=== PATIENT | female | born 1950 | race Caucasian/White ===

== ENCOUNTER 2016-12-01 00:40 | Inpatient (IN) ==
--- NOTE | 2016-12-01 01:03 | Emergency Department Note ---
Arrival - Arrival Chief Complaint: Upper Respiratory Stated Complaint: URI ED Nursing Triage Note: C/C transfer from [facility] for DX URI, Rhabdomylosis. Pt was given 1g Rocephin, 3L NS, 2 Duonebs. Mode of Arrival: Stretcher Limitations: No Limitations Source: Patient Time Seen by Provider: 12/01/16 00:58 - History of Present Illness HPI Narrative: This 66-year-old white female presents on transfer from [facility] where she was evaluated earlier this evening for 3 day history of respiratory complaints that had not improved on outpatient antibiotics. However , in the process of workup the patient was found to have significant rhabdomyolysis and renal insufficiency. The patient denies any significant history of kidney dysfunction in the past. Likewise the patient had a greatly elevated white blood count of 31,000. Currently she still complains of a cough associated with intermittent wheezing. She presents currently after receiving 3 L of fluid Rocephin, and 2 DuoNeb's Onset (ago): day(s) (Patient presents several days post onset of symptoms) Allergies/Adverse Reactions: Allergies Allergy/AdvReac Type Severity Reaction Status Date / Time Sulfa (Sulfonamide Allergy Severe SHORTNESS Verified 12/01/16 00:53 Antibiotics) OF BREATH cefdinir [From Omnicef] Allergy Mild ITCHING Verified 12/01/16 00:53 Home Medications: Home Medications Medication Instructions Recorded Confirmed Type Carbidopa/Levodopa 25-100 [Sinemet 1 tablet PO DAILY 05/10/15 05/10/15 History 25-100] Estrogens(Conj) Tab [Premarin Tab] 0.625 mg PO DAILY 05/10/15 05/10/15 History HYDROcodone/ACETAMIN 7.5-325 1 tablet PO Q6H 05/10/15 05/10/15 History [[place] 7.5-325] PROzac 40 mg PO DAILY 05/10/15 05/10/15 History Zestoretic 20-12.5 mg Tablet 20 mg PO DAILY 05/10/15 05/10/15 History Review of System - Review of System 12 point system: reviewed and no additional remarkable complaints except as stated - Review of System Constitutional: Present: as per HPI Respiratory: Present: as per HPI Genitourinary female: Present: as per HPI Medical,Surgical,& Family Hx - Medical History Cardio: History of: CAD, Hypertension Neurology: History of: Migraine No history of: Seizures Respiratory: History of: Obstructive Sleep Apnea Gastrointestinal: History of: GERD, GI Problems (dysphagia) - Surgical History Abdominal Surgeries: Surgical HX of: Cholecystectomy, EGD - Social History Smoking Status: Former smoker Frequency of Alcohol Use: None Type of Drug Use: None Exam Physical Examination: GENERAL: Obese white female in no acute distress. HEENT: Normocephalic. No trauma. Moist mucous membranes. EOMI. PERRLA. ENT NML NECK: Supple. No adenopathy. CARDIAC: Regular. No murmurs. Heart rate 88 CHEST: Scattered expiratory wheezes anteriorly. No respiratory distress. O2 sat 92% ABDOMEN: Soft. Nontender. Active bowel sounds. EXTREMITIES: No trauma. Normal ROM. No pedal edema. SKIN: No diaphoresis. No rash. NEURO: Alert. Oriented 3. Motor, sensory, vibratory intact. No focal deficits. Vital Signs: Vital Signs Temperature 98.5 F 12/01/16 00:40 Pulse Rate 86 12/01/16 00:40 Respiratory Rate 22 12/01/16 00:40 Blood Pressure 86/54 12/01/16 00:40 O2 Sat by Pulse Oximetry 92 L 12/01/16 00:40 Course - Reevaluation(s) Reevaluation #1: Discussed with patient the need for hospitalization. - Consultations Consultation #1: Discussed with hospitalist service who will admit for further evaluation treatment peer Results - Labs Labs: Laboratory per [place] urinalysis reveals 1+ leukocytes and 1+ protein, glucose 131, creatinine 4.1, BUN 37, myoglobin 3821, white blood count 31,000 hematocrit 33 - Impressions EKG per [place] revealed no acute injury pattern. - Diagnostic Findings Procedure: CT: image reviewed by me, report reviewed by me (Head per [place] negative) Disposition Clinical Impression: Rhabdomyolysis, Acute renal failure, Asthma, Persistent upper respiratory infection Case discussed with: patient, patient's family Disposition: Still a Patient Condition: Guarded Time of Disposition: 01:09
[2016-12-01] MEDS ORDERED: methylPREDNISolone SOD SUC 125 MG/2 ML VIAL IV STA (01:05)
[2016-12-01] MEDS ORDERED: ALBUTEROL/IPRATROPIUM 3 ML NEB RESP TX STA (01:05)
[2016-12-01] MEDS ORDERED: SODIUM CHLORIDE 0.9% 1,000 ML IV STA (01:19)
[2016-12-01 01:28] LABS: Basophils # 0.1 10*3/uL (0.0-0.2); Basophils % 0.3 % (0.0-0.8); Hematocrit 31.3 VOL% (35.7-47.0); Hemoglobin 9.8 GM/DL (12.0-16.0); Immature Granulocytes Absolute 0.28 #; Lymphocytes % 3.6 % (21.3-54.2); Mean Corpuscular HGB Conc 31.3 GM/DL (32-36); Mean Corpuscular Hemoglobin 29 PG (27-34); Mean Corpuscular Volume 92.1 FL (87-102); Mean Platelet Volume 10.5 FL (9.6-12.0); Monocytes # 0.4 10*3/uL (0.11-0.8); Monocytes % 1.4 % (1.7-12.7); Neutrophils # 25.3 10*3/uL (1.4-7.4); Neutrophils % 93.7 % (38.7-73.9); Platelet Count 333 T/CUMM (130-400)
[2016-12-01 01:52] LABS: Lymphocytes 2 % (20-55); Segmented Neutrophils 95 % (50-85)
[2016-12-01 01:53] LABS: Ovalocytes 1+; Platelet Estimate Increased
[2016-12-01 01:54] LABS: Total Cells Counted 100
[2016-12-01 02:28] LABS: Alanine Aminotransferase 27 U/L (13-56); Albumin 3.3 G/DL (3.4-5.0); Alkaline Phosphatase 106 U/L (45-117); Aspartate Amino Transferase 49 U/L (0-37); Bilirubin,Total < 0.39 MG/DL (0.2-1.0); Blood Urea Nitrogen 60 MG/DL (7-18); CKMB % 2.5 %; Glucose 145 MG/DL (74-106); Osmolality,Calculated 298.4 MOS/KG (273-304); Potassium 4.8 MMOL/L (3.5-5.1); Sodium 140 MMOL/L (136-145); Total Protein 6.6 G/DL (6.4-8.3); Troponin I Only < 0.015 NG/ML (0.00-0.045)
[2016-12-01] MEDS ORDERED: ACETAMINOPHEN 325 MG TABLET PO PRN (03:23)
[2016-12-01] MEDS ORDERED: SODIUM CHLORIDE 0.9% 1,000 ML IV SCH (03:30)
--- NOTE | 2016-12-01 03:43 | Hospitalist History & Physical ---
Assessment and Plan (1) Altered mental status Status: Acute Assessment and plan: Patient is drowsy but arousable. Likely due to her acute illness plus medications she is on noted she has been on gabapentin Flexeril and zolpidem at home. In addition she is also appeared dehydrated with acute kidney injury. I will order ABG to make sure she does not have CO2 retention causing drowsiness Current Visit: Yes (2) Pneumonia Status: Acute Assessment and plan: Patient has a upper respiratory tract infection and possible pneumonia will follow do the blood culture and start antibiotics follow the response. Due to her wheezing I will give bronchodilator. I will also ordered pro-calcitonin level Current Visit: Yes (3) Acute kidney injury Status: Acute Assessment and plan: Probably due to acute illness and dehydration with the combination of DARIEL inhibitor and diuretic contributing. Will continue hydration get urine electrolytes and creatinine. Monitor renal function. Renal consult in the morning Current Visit: Yes (4) Anemia Status: Acute Assessment and plan: We will repeat hemoglobin hematocrit check stool Hemoccult and anemia studies with iron ferritin iron binding capacity folic acid B12 LDH and reticulocyte count. Workup to be followed by the hospitalist in the morning Current Visit: Yes (5) Leukocytosis Status: Acute Assessment and plan: Likely due to acute infection plus dehydration. Current Visit: Yes History of Present Illness Chief complaint: Altered mental status and wheezing History of present illness: Ms. Chaves is a 66 year old female with history of for hypertension and low back pain transfer from [facility]. Patient has been sick for the last 2 days prior to coming to the hospital. According to the family patient started having wheezing on Saturday she has no history of asthma or COPD she was a smoker but quit 16 years ago when she suffered from bleeding peptic ulcer. She was given outpatient treatment but was not able to improve. Also she has been drowsy since Saturday. She is able to sleep easily. She has been coughing without any production of sputum she has no fever. She has nausea but no vomiting diarrhea she is reported to be voiding okay without any urinary symptoms she does have some sore throat and sneezing according to but no runny nose. The patient was sleepy but was able to arouse her and she complained of low back pain but has chronic low back pain history. She did endorse having sore throat and wheezing. She is not exposed to active or passive smoking recently. At the [facility] she had underwent investigation of was noted to have white count of 31,000 BUN of 51 creatinine 4.1 she was hypotensive with a blood pressure as low as 86/540. She has received IV fluid. She had a CT scan of the head which was negative for any acute intracranial abnormalities. Urinalysis reported to have a specific gravity of greater than 1.0301+ leukocyte without any nitrites. He had she had a repeat lab work done and noted to have WBC count of 7 27,000 hemoglobin 9.8 hematocrit 31.3. Her BUN level of 60 and creatinine 3.7. She had a CPK of 1095 her troponin level was less than 0.015. At [facility] she had a CPK level of 3821. She has received 1 g of Rocephin at [facility] with the 3 L of normal saline. Labs. She received 1 L of fluid here in our ER. Home Medications Medication Instructions Recorded Confirmed Type Carbidopa/Levodopa 25-100 [Sinemet 1 tablet PO DAILY 05/10/15 05/10/15 History 25-100] Estrogens(Conj) Tab [Premarin Tab] 0.625 mg PO DAILY 05/10/15 05/10/15 History HYDROcodone/ACETAMIN 7.5-325 1 tablet PO Q6H 05/10/15 05/10/15 History [[place] 7.5-325] PROzac 40 mg PO DAILY 05/10/15 05/10/15 History Zestoretic 20-12.5 mg Tablet 20 mg PO DAILY 05/10/15 05/10/15 History Allergies Allergy/AdvReac Type Severity Reaction Status Date / Time Sulfa (Sulfonamide Allergy Severe SHORTNESS Verified 12/01/16 00:53 Antibiotics) OF BREATH cefdinir [From Omnicef] Allergy Mild ITCHING Verified 12/01/16 00:53 Medical,Surgical,& Family Hx - Medical History Cardio: History of: CAD, Hypertension Neurology: History of: Migraine No history of: Seizures Respiratory: History of: Obstructive Sleep Apnea (Patient has never been tested for sleep apnea but has been. ) Gastrointestinal: History of: GERD, GI Problems (dysphagia) - Surgical History Surgical History: noncontributory Abdominal Surgeries: Surgical HX of: Cholecystectomy, EGD Reproductive Surgeries: Surgical HX of;: Hysterectomy - Social History Smoking Status: Former smoker Frequency of Alcohol Use: None Type of Drug Use: None Review of systems: Comprehensive review of system was done and negative unless indicated above in HPI Exam - Constitutional Vitals: Period Temp Pulse Resp BP Sys/Tabares Pulse Ox Last 24 Hr 98.5 F-98.5 F 83-87 20-22 86-86/54-54 92-97 General appearance: morbidly obese, other (Sleepy but arousable) - Head Head exam: Present: normal inspection, normocephalic, atraumatic - Eye Eye exam: Present: EOMI, conjunctival injection. Absent: nystagmus Pupils: Present: JACK, normal accommodation - ENT ENT exam: Present: normal exam, normal oropharynx - Neck Neck exam: Present: other (Supple) - Respiratory Respiratory exam: Present: rhonchi, wheezes. Absent: accessory muscle use ( Bilateral equal air entry with diffuse rhonchi), rales - Cardiovascular Cardiovascular exam: Present: regular rate and rhythm. Absent: tachycardia - GI/Abdominal GI/Abdominal exam: Present: normal bowel sounds, soft. Absent: distended, tenderness - Extremities Exam Extremities exam: Present: normal inspection. Absent: edema - Neurological Exam Neurological exam: Present: alert, oriented X3 - Skin Skin exam: Present: normal color Results - Labs CBC & BMP: 12/01/16 00:57 12/01/16 00:57 Lab Results: I have reviewed the past 24 hour labs
[2016-12-01 03:54] LABS: ABG Base Excess -10.4 MMOL/L (-2.5-2.5); ABG Oxygen Saturation 93.1 % (95-100); ABG PCO2 52.6 MM HG (35-48); ABG PO2 82.2 MM HG (80-95); ABG TCO2 17.5 MMOL/L (23-27); Allen Test Positive
[2016-12-01 03:56] LABS: ABG PH 7.153 (7.35-7.45)
[2016-12-01] MEDS ORDERED: LEVOFLOXACIN INJ 750 MG in PREMIX 1 EACH IV ONE (04:00)
[2016-12-01 04:49] LABS: % Iron Saturation 5.1 % (18-50)
[2016-12-01 04:53] LABS: Ferritin 43.9 ng/ml (8-252)
[2016-12-01] MEDS: SODIUM BICARB INJ 150 MEQ in STERILE WATER INJ 850 ML IV SCH ×4 (04:57→19:12)
[2016-12-01] MEDS ORDERED: SODIUM ACETATE IV SCH (05:00)
[2016-12-01] MEDS ORDERED: STERILE WATER IV SCH (05:00)
[2016-12-01 05:23] LABS: Folate 6.7 NG/ML (5.4-24.0)
[2016-12-01] MEDS ORDERED: VANCOMYCIN INJ 1,500 MG in SODIUM CHLORIDE 0.9% 500 ML IV ONE (06:00)
[2016-12-01] MEDS: ALBUTEROL 1.25 MG/3 ML NEB RESP TX SCH ×5 (07:26→23:49)
[2016-12-01 07:42] LABS: ABG Base Excess -7.3 MMOL/L (-2.5-2.5); ABG HCO3 18.4 MMOL/L (20-26); ABG Oxygen Saturation 96.2 % (95-100); ABG PCO2 52.3 MM HG (35-48); ABG PO2 96.9 MM HG (80-95); ABG TCO2 19.4 MMOL/L (23-27); Allen Test Positive
[2016-12-01 07:48] LABS: ABG PH 7.209 (7.35-7.45)
[2016-12-01] MEDS ORDERED: AMINOPHYLLINE 250 MG in SODIUM CHLORIDE 0.9% 100 ML IV ONE (08:00)
[2016-12-01] MEDS ORDERED: ALBUTEROL/IPRATROPIUM 3 ML NEB RESP TX PRN (08:00)
--- NOTE | 2016-12-01 08:15 | Pulmonology Consult Note ---
History of Present Illness Chief complaint: S OB. Wheezing. Mild hypercarbia. Severe metabolic acidosis History of present illness: Ms. Chaves is a 66 year old white female whom I been asked to see in pulmonary consultation for evaluation and treatment. This patient was brought in because she was confused. She was found to have mild hypercarbia, generalized wheezing, severe metabolic acidosis. Renal failure. There is a history of high blood pressure. Patient was anemic and she had a high white count. She complains of a cough with no sputum production. She is hearing herself wheeze. She told someone she had a sore throat.. The patient is confused and remainder of her review of systems is unreliable. Allergies. Sulfa. Omnicef. Home medicines. See below. Past history. High blood pressure. Migraine headache. Hysterectomy. Cholecystectomy. Dysphasia. Possible history of obstructive sleep apnea. Social history. Former smoker. Family history. Positive high blood pressure Chest x-ray. Heart size is normal. Pulmonary arteries are normal. Mediastinum is normal. There are faint increased interstitial markings at both bases. No definite infiltrates. Only a portable semierect film is available. No heart ABGs 12/01/2016 at 3:40 AM. PH 7.153, PCO2 52.6. PO2 82.2. Bicarb 16. FiO2 36 % ABGs. . 7:25 AM. FiO2 36%. PH 7.209, PCO2 52.3, PO2 96.9, bicarb 18.4 Lab. Electrolytes are normal. Creatinine is 3.70 with a BUN of 16. Iron is low with an elevated total iron-binding capacity and low iron saturation of 5.1. Liver function tests are normal. Total CPK is 1095. Troponins are negative. Total protein is 6.6. Albumin is low at 3.3. Globulin is normal at 3.3. Folic acid and B12 levels are normal. White count is 27,000 with 94% segs. H&H is 9.8/31.3. Platelets are 333,000. No other labs available. Microbiology. No results CT of the head. No acute change Physical exam. Vital signs. See below. No recorded elevated temps. Psychiatric. Will talk and answer questions. Clearly confused. General. No significant distress. Sitting on the side of the bed eating breakfast. Neurologic. Cranial nerves are intact. Patient moves all 4 extremities. Pupils irises sclera conjunctiva eyelids are normal. Face is symmetrical. Lips and tongue are normal. Neck. Symmetrical. No meningismus. Lymphatics. No submandibular cervical supraclavicular or epitrochlear adenopathy. Chest. Laryngeal tracheal and large airway wheeze with associated coarse congestion. High-pitched peripheral wheezes it persists beyond the end of expiration. Heart. No gallop. Abdomen. Nondistended. Positive bowel sounds Extremities. Nothing to suggest deep venous thrombophlebitis. Skin. No infectious or cancerous lesions seen in the face hands or lower extremities. No other areas examined. Musculoskeletal no gross abnormalities cervical thoracic lumbar spine. Slightly tender Venous exam. Neck upper and lower extremities are normal Arterial exam. Carotids are decreased. Upper extremity pulses are palpable. Lower extremity pulses are nonpalpable. No evidence of lower extremity ischemia. The remainder the exam is noncontributory Impression. 1. Acute severe bronchitis with bronchospasm. Watch for pneumonia. Also consider the possibility that DARIEL inhibitor is may be exacerbating laryngeal and tracheal wheeze. 2. Mild hypercarbia and mild hypoxemia 3. Severe metabolic acidosis with mild respiratory acidosis. Etiology undetermined. Sepsis is most likely cause. Acute renal failure may be contributory. Consider other possibilities 4. History of tobacco abuse 5. Renal failure. Duration unknown. 6. High blood Plan. 1. Stop vancomycin. Use Cleocin in place of this for the present time. 2. Decrease dose of Levaquin in face of renal failure 3. Renal consultation 4. Cold agglutinins 5. Legionella titer 6. Sputum for Gram stain culture and sensitivity 7. Serial chest x-rays 8. Serial ABGs 9. Doppler venograms of the lower extremities 10. IV Aminophyllin. Daily theophylline levels 11. Singulair. 12. Agree with duo nebs every 4 hours. 13. See order Home Medications Medication Instructions Recorded Confirmed Type Carbidopa/Levodopa 25-100 [Sinemet 1 tablet PO DAILY 05/10/15 05/10/15 History 25-100] Estrogens(Conj) Tab [Premarin Tab] 0.625 mg PO DAILY 05/10/15 05/10/15 History HYDROcodone/ACETAMIN 7.5-325 1 tablet PO Q6H 05/10/15 05/10/15 History [[place] 7.5-325] PROzac 40 mg PO DAILY 05/10/15 05/10/15 History Zestoretic 20-12.5 mg Tablet 20 mg PO DAILY 05/10/15 05/10/15 History Allergies Allergy/AdvReac Type Severity Reaction Status Date / Time Sulfa (Sulfonamide Allergy Severe SHORTNESS Verified 12/01/16 00:53 Antibiotics) OF BREATH cefdinir [From Omnicef] Allergy Mild ITCHING Verified 12/01/16 00:53 Exam (Pulmonay) H&P - Constitutional Vitals: Period Temp Pulse Resp BP Sys/Tabares Pulse Ox Last 24 Hr 97.7 F-98.5 F 66-87 14-22 86-106/54-70 92-99 Medical,Surgical,& Family Hx - Medical History Cardio: History of: CAD, Hypertension Neurology: History of: Migraine No history of: Seizures Respiratory: History of: Obstructive Sleep Apnea (Patient has never been tested for sleep apnea but has been. ) Genitourinary: History of: Kidney Stones Gastrointestinal: History of: GERD, Gastrointestinal Bleed, GI Problems ( dysphagia, esophageal dilation, and hitial hernia) Musculoskeletal: History of: Musculoskeletal Problems (arhritis) - Surgical History Abdominal Surgeries: Surgical HX of: Cholecystectomy, EGD Reproductive Surgeries: Surgical HX of;: Hysterectomy - Social History Smoking Status: Former smoker Frequency of Alcohol Use: None Type of Drug Use: None Results - Labs CBC & BMP: 12/01/16 00:57 12/01/16 00:57
--- NOTE | 2016-12-01 08:19 | Hospitalist Progress Note ---
Assessment and Plan - Time spent with patient Time spent with patient: Greater than 30 minutes (1) Metabolic acidosis Status: Acute Current Visit: Yes (2) Acute kidney injury Status: Acute Current Visit: Yes (3) Altered mental status Status: Acute Current Visit: Yes (4) Anemia Status: Acute Current Visit: Yes (5) Leukocytosis Status: Acute Current Visit: Yes (6) Pneumonia Status: Acute Assessment and plan: Has already been started on broad spectrum antibiotics and also to cover possible aspiration/pneumonia. Levaquin and clindamycin Follow culture report and adjust antibiotic as needed Send urinalysis, urine culture. Follow pro calcitonin Echocardiogram to rule out cardiac component to respiratory failure Nephrology consulted Continue IV fluid hydration Add steroids, Solu-Medrol 18 mg every 8 hourly GI prophylaxis while on steroid DVT prophylaxis Current Visit: Yes Hospitalist: Subjective Interval history: This is a 66-year-old female admitted early this morning from an outside hospital for respiratory failure due to sepsis sepsis source is unclear at this time but may be due to pneumonia/COPD. At the time I saw her, she was feeling slightly better. Blood pressures look better after IV fluid resuscitation. No fever. Mental status was clear enough for her to give the history, she did admit to feeling ill over the last 3 days with intermittent coughing and wheezing. Exam - Constitutional Vitals: Period Temp Pulse Resp BP Sys/Tabares Pulse Ox Last 24 Hr 97.6 F-98.5 F 66-88 14-22 86-106/54-72 92-99 General appearance: mild distress, over weight - Head Head exam: Present: normal inspection, normocephalic, atraumatic - Eye Eye exam: Present: EOMI. Absent: scleral icterus Pupils: Present: JACK - Respiratory Respiratory exam: Present: rhonchi, wheezes. Absent: chest wall tenderness - Cardiovascular Cardiovascular exam: Present: regular rate and rhythm. Absent: diastolic murmur , JVD, systolic murmur - GI/Abdominal GI/Abdominal exam: Present: normal bowel sounds. Absent: ascites, distended - Extremities Exam Extremities exam: Present: full ROM. Absent: edema - Neurological Exam Neurological exam: Present: alert, oriented X3 - Skin Skin exam: Present: normal color, warm, dry Results - Labs CBC & BMP: 12/01/16 00:57 12/01/16 00:57 Lab Results: I have reviewed the past 24 hour labs
--- NOTE | 2016-12-01 08:34 | XRay Report ---
XR chest 1V portable Indication: Shortness of breath. Comparison: Chest x-ray 11/30/2016. Technique: Portable AP chest was performed. Findings: Heart size is normal. Mild ectasia of the thoracic aorta appears stable. Pulmonary vasculature appears within normal limits. No significant abnormality of the mediastinal contours demonstrated. Lungs are clear. Bones and soft tissues demonstrate no significant abnormalities. Impression: 1. No evidence of acute pathology. 12/01/2016 8:32 AM PROCEDURE INTERPRETED AT [facility] DEPARTMENT OF RADIOLOGY Final Report Signed by: Dr. Jim Ortega
[2016-12-01 08:39] LABS: Apearance,Urine Slightly Hazy (Clear); Bacteria,Urine Occasional /HPF (Few); Bilirubin,Urine Negative (Negative); Blood, Urine Moderate mg/dL (Negative); Glucose,Urine (UA) Negative (Negative); Ketones,Urine Negative (Negative); Mucus,Urine Occasional /LPF (Occasional); Nitrite,Urine Negative (Negative); Protein,Urine Negative; RBC,Urine 11 /HPF (0-4); Squamous Epithelial Cell,Urine Occasional /HPF (0-10); Urine Color Yellow (Yellow); Urine Specific Gravity 1.011 (1.001-1.035); Urine Urobilinogen < 2.0 EU/DL (0.2-1.0); WBC,Urine 2 /HPF (0-6)
[2016-12-01] MEDS: PANTOPRAZOLE 40 MG TABLET PO SCH (08:53)
[2016-12-01] MEDS: MONTELUKAST 10 MG TABLET PO SCH (08:53)
[2016-12-01] MEDS: CARBIDOPA/LEVODOPA 25-100 MG TABLET PO SCH (08:53)
[2016-12-01] MEDS: methylPREDNISolone SOD SUC 40 MG/1 ML VIAL IV SCH ×2 (08:54→17:30)
[2016-12-01] MEDS: CLINDAMYCIN INJ 300 MG in PREMIX 1 EACH IV SCH ×2 (08:55→17:30)
[2016-12-01 09:05] LABS: Free T4 (Free Thyroxine) 1.02 NG/DL (0.76-1.46); Thyroid Stimulating Hormone 0.348 uIU/ml (0.358-3.74)
--- NOTE | 2016-12-01 09:19 | Ultrasound Report ---
US venous doppler LE BI Indication: Lower extremity swelling and pain. Comparison: None. Technique: Using a transcutaneous probe, grayscale, spectral Doppler, and color Doppler images of the bilateral lower extremity venous structures were captured and stored. Grayscale images prior to and following compression were obtained. Interrogated venous structures include the bilateral common femoral vein, superficial femoral vein (proximal, mid, and distal), and popliteal vein. Findings: There is no evidence of thrombus within the interrogated venous structures. the interrogated venous segments demonstrate presence of both color flow and spectral flow. Impression: 1. No evidence of venous thrombosis. 12/01/2016 9:16 AM PROCEDURE INTERPRETED AT [facility] DEPARTMENT OF RADIOLOGY Final Report Signed by: Dr. Jim Ortega
[2016-12-01] MEDS: AMINOPHYLLINE 500 MG in SODIUM CHLORIDE 0.9% 480 ML IV SCH (13:25)
--- NOTE | 2016-12-01 14:55 | ECHO Report ---
Karishma Chaves Exam Date: 12/01/2016 11:10 Referring Physician: Technologist: Karlee Houser HAILEY Age: 66 Ht (in): 62 Wt (lb): 203 Gender: F Exam Location: [facility] Indications: Altered mental status, Pneumonia, Metabolic acidosis, Acute kidney injury, Leukocytosis, Anemia, Essential (primary) hypertension BP: 117 / 78 HR: 86 Rhythm: Sinus Technical Quality: Fair IMPRESSIONS EF 60 % .Grade I/IV diastolic dysfunction (abnormal relaxation filling pattern), normal to mildly elevated filling pressures. Mildly increased right ventricular size. Moderately increased right atrial size. Moderately . Morphologically normal mitral valve. Trace mitral valve regurgitation. Aortic valve sclerosis. No aortic valve regurgitation. Moderate tricuspid valve regurgitation. PAP50 mmHJG. Pulmonic valve not well visualized. Normal pericardium without effusion. Normal ascending aorta dimension. MEASUREMENTS (Male / Female) Normal Values 2D ECHO LV Diastolic Diameter PLAX 4.6 cm 4.2 - 5.9 / 3.9 - 5.3 cm LV Systolic Diameter PLAX 3.7 cm LV Fractional Shortening PLAX 20.2 % IVS Diastolic Thickness 0.8 cm 0.6 - 1.0 / 0.6 - 0.9 cm LVPW Diastolic Thickness 0.9 cm 0.6 - 1.0 / 0.6 - 0.9 cm RV Internal Dim ED PLAX 3.0 cm Aortic Root Diameter 3.7 cm LA Systolic Diameter LX 4.1 cm 3.0 - 4.0 / 2.7 - 3.8 cm DOPPLER TR Peak Velocity 314.0 cm/s TR Peak Gradient 39.4 mmHg FINDINGS Left Ventricle EF 60 % . Grade I/IV diastolic dysfunction (abnormal relaxation filling pattern), normal to mildly elevated filling pressures. Right Ventricle Mildly increased right ventricular size. Right Atrium Moderately increased right atrial size. Left Atrium Moderately increased left atrial size. Mitral Valve Morphologically normal mitral valve. Trace mitral valve regurgitation. Aortic Valve Aortic valve sclerosis. No aortic valve regurgitation. Tricuspid Valve Morphologically normal tricuspid valve. Moderate tricuspid valve regurgitation. PAP50 mmHJG. Pulmonic Valve Pulmonic valve not well visualized. Pericardium Normal pericardium without effusion. Aorta Normal ascending aorta dimension. Gus Hernandez (Electronically Signed) Final Date: 01 December 2016 14:54
--- NOTE | 2016-12-01 16:04 | Nephrology Consult Note ---
History of Present Illness Chief complaint: ARF History of present illness: Ms. Chaves is a 66 year old female transferred from [facility]. She reported a several day history of cough and wheezing. She was noted to have significant acidosis and renal insufficiency at the time of presentation. She was hypotensive and required significant volume resuscitation. Blood pressure has improved since admission. She has no known history of chronic renal failure. She states she had one episode of acute renal insufficiency 15 years ago. No history of nephrolithiasis. No dysuria or hematuria. Family reports she has been mildly confused as well. Home Medications Medication Instructions Recorded Confirmed Type Carbidopa/Levodopa 25-100 [Sinemet 1 tablet PO DAILY 05/10/15 05/10/15 History 25-100] Estrogens(Conj) Tab [Premarin Tab] 0.625 mg PO DAILY 05/10/15 05/10/15 History HYDROcodone/ACETAMIN 7.5-325 1 tablet PO Q6H 05/10/15 05/10/15 History [Whitney 7.5-325] PROzac 40 mg PO DAILY 05/10/15 05/10/15 History Zestoretic 20-12.5 mg Tablet 20 mg PO DAILY 05/10/15 05/10/15 History Allergies Allergy/AdvReac Type Severity Reaction Status Date / Time Sulfa (Sulfonamide Allergy Severe SHORTNESS Verified 12/01/16 00:53 Antibiotics) OF BREATH cefdinir [From Omnicef] Allergy Mild ITCHING Verified 12/01/16 00:53 Medical,Surgical,& Family Hx - Medical History Cardio: History of: CAD, Hypertension Neurology: History of: Migraine No history of: Seizures Respiratory: History of: Obstructive Sleep Apnea (Patient has never been tested for sleep apnea but has been. ) Genitourinary: History of: Kidney Stones Gastrointestinal: History of: GERD, Gastrointestinal Bleed, GI Problems ( dysphagia, esophageal dilation, and hitial hernia) Musculoskeletal: History of: Musculoskeletal Problems (arhritis) - Surgical History Abdominal Surgeries: Surgical HX of: Cholecystectomy, EGD Reproductive Surgeries: Surgical HX of;: Hysterectomy - Social History Smoking Status: Former smoker Frequency of Alcohol Use: None Type of Drug Use: None Review of Systems 12 point system: reviewed and no additional remarkable complaints except as stated Exam - Vital Signs Vital signs: Period Temp Pulse Resp BP Sys/Tabares Pulse Ox Last 24 Hr 97.6 F-98.5 F 66-88 10-22 86-122/54-78 92-99 Exam: Gen.: Alert and oriented x3. ENT: Pupils equal round reactive to light. EOMs intact. Neck: Supple. No JVD or bruit. Cardiovascular: Regular rate and rhythm. No murmur rub or gallop Lungs: Clear Abdomen: Soft. Nontender. Positive bowel sounds. No organomegaly Extremities: No edema Results - Labs CBC & BMP: 12/01/16 00:57 12/01/16 00:57 Assessment and Plan (1) Acute kidney injury Status: Acute Assessment and plan: 66-year-old woman with: * Wheezing. No history of pulmonary disease other than sleep apnea. Followed by pulmonary * ARF. She was hypotensive at the time of admission. Blood pressure has improved significantly with volume resuscitation. Systolic blood pressure is now 130. Urine output has been adequate. No proteinuria present. No pyuria. Renal ultrasound has been ordered. She was on DARIEL inhibitor and diuretic prior to admission. These of been discontinued. She was also taking Aleve prior to admission. * Combined metabolic and respiratory acidosis. There is a minimal elevation in anion gap. Delta AG over delta bicarb is 1. PCO2 is much higher than predicted if compensating for metabolic acidosis. This may well represent primary respiratory acidosis with superimposed metabolic acidosis. There is no osmolar gap; therefore unmeasured toxin exposure is not suspected. Lactic acid is not elevated. Agree with IV bicarbonate. * Altered mental status. She is oriented but family states she is not acting quite herself. She did take tramadol prior to admission Current Visit: Yes (2) Respiratory acidosis Status: Acute Current Visit: Yes (3) Wheezing Status: Acute Current Visit: Yes (4) Altered mental status Status: Acute Current Visit: Yes (5) Leukocytosis Status: Acute Current Visit: Yes (6) Metabolic acidosis Status: Acute Current Visit: Yes
--- NOTE | 2016-12-01 18:07 | Ultrasound Report ---
US renal Bilateral Indication: Acute renal failure. Comparison: None. Technique: Using a transcutaneous probe, multiple grayscale and color Doppler images of the right and left kidney were captured and stored. Findings: The right kidney measures 11.4 cm in length. The left kidney measures 10.8 cm in length. No hydronephrosis, perinephric fluid collection, or nephrolithiasis of either kidney is demonstrated. Impression: 1. No acute findings. 12/01/2016 6:04 PM PROCEDURE INTERPRETED AT [facility] DEPARTMENT OF RADIOLOGY Final Report Signed by: Dr. Jim Ortega
[2016-12-02] MEDS: methylPREDNISolone SOD SUC 40 MG/1 ML VIAL IV SCH ×2 (00:48→08:16)
[2016-12-02] MEDS: CLINDAMYCIN INJ 300 MG in PREMIX 1 EACH IV SCH ×3 (00:50→16:52)
[2016-12-02] MEDS: SODIUM BICARB INJ 150 MEQ in STERILE WATER INJ 850 ML IV SCH ×2 (01:01→08:24)
[2016-12-02] MEDS: ALBUTEROL 1.25 MG/3 ML NEB RESP TX SCH ×6 (03:33→23:08)
[2016-12-02 03:46] LABS: Allen Test Positive; Pt O2 Delivery Device Room Air
[2016-12-02 03:47] LABS: ABG Base Excess 6.8 MMOL/L (-2.5-2.5); ABG HCO3 30.3 MMOL/L (20-26); ABG Oxygen Saturation 93.8 % (95-100); ABG PCO2 38.9 MM HG (35-48); ABG PH 7.509 (7.35-7.45); ABG PO2 64.3 MM HG (80-95); ABG TCO2 31.5 MMOL/L (23-27)
[2016-12-02 05:17] LABS: Calcium 8.2 MG/DL (8.5-10.1); Osmolality,Calculated 291.3 MOS/KG (273-304)
[2016-12-02] MEDS: MONTELUKAST 10 MG TABLET PO SCH ×2 (08:12→08:24)
--- NOTE | 2016-12-02 08:12 | XRay Report ---
XR chest 1V portable Indication: Ventilator Comparison: Chest x-ray 12/01/2016 Technique: Portable AP chest was performed. Findings: Limited inspiration is present. Lungs demonstrate little change given the difference in inspiration. Minimal atelectatic changes of the lung bases are present. Lungs otherwise clear. Heart size is stable. Crowding of hilar vasculature is suggested. Bones and soft tissues are stable. Impression: 1. Minimal bibasilar atelectatic changes are suggested. 12/02/2016 8:09 AM PROCEDURE INTERPRETED AT [facility] DEPARTMENT OF RADIOLOGY Final Report Signed by: Dr. Jim Ortega
[2016-12-02] MEDS: PANTOPRAZOLE 40 MG TABLET PO SCH (08:14)
[2016-12-02] MEDS: CARBIDOPA/LEVODOPA 25-100 MG TABLET PO SCH (08:14)
--- NOTE | 2016-12-02 08:40 | Hospitalist Progress Note ---
Assessment and Plan - Time spent with patient Time spent with patient: Greater than 30 minutes (1) Metabolic acidosis Status: Acute Current Visit: Yes (2) Acute kidney injury Status: Acute Current Visit: Yes (3) Altered mental status Status: Acute Current Visit: Yes (4) Anemia Status: Acute Current Visit: Yes (5) Leukocytosis Status: Acute Current Visit: Yes (6) Pneumonia Status: Acute Assessment and plan: Continue on broad spectrum antibiotics - Levaquin and clindamycin. Continue respiratory therapy, pulmonology is following. Follow culture report and adjust antibiotic as needed Nephrology following Continue IV fluid hydration and watch for fluid overload Begin to taper steroids, start Prednisone 20mg daily GI prophylaxis while on steroid Consider Psych eval by [facility] DVT prophylaxis Transfer to the floor Current Visit: Yes Hospitalist: Subjective Interval history: She had a quiet night in terms of respiratory status, no wheezing. Her ABG looks better this morning. No fever, her marked leukocytosis is likely due to steroids Renal function has improved compared to admission. Blood glucose is in acceptable She is stable enough for transfer to the floor. She will also benefit from floor transfer where her family can assist in her care since she has been fairly difficult to manage in the ICU because of her multiple demands neediness which I understand has been going on for a while and which may be due to psychiatric condition/dementia. I see that she is on dementia meds from home Exam - Constitutional Vitals: Period Temp Pulse Resp BP Sys/Tabares Pulse Ox Last 24 Hr 97.2 F-98.1 F 71-111 10-27 90-157/61-96 91-99 General appearance: morbidly obese - Head Head exam: Present: normocephalic, atraumatic - Eye Pupils: Present: JACK - Respiratory Respiratory exam: Present: rhonchi. Absent: accessory muscle use, chest wall tenderness, wheezes - Cardiovascular Cardiovascular exam: Present: regular rate and rhythm. Absent: JVD, systolic murmur - GI/Abdominal GI/Abdominal exam: Present: normal bowel sounds, soft. Absent: ascites, tenderness - Extremities Exam Extremities exam: Present: edema. Absent: calf tenderness - Neurological Exam Neurological exam: Present: alert, oriented X3 - Skin Skin exam: Present: normal color, warm, dry Results - Labs CBC & BMP: 12/01/16 00:57 12/03/16 06:06 Lab Results: I have reviewed the past 24 hour labs - Diagnostic Findings Procedure: Chest x-ray: image reviewed by me, report reviewed by me
--- NOTE | 2016-12-02 08:46 | Pulmonology Progress Note ---
Pulmonary - PN: Subj Interval history: This is a 66-year-old white female. I saw her in pulmonary consultation on 12/01. My impressions were. 1. Acute severe bronchitis with bronchospasm. Watch for pneumonia. Also consider the possibility that DARIEL inhibitor is may be exacerbating laryngeal and tracheal wheeze. 2. Mild hypercarbia and mild hypoxemia 3. Severe metabolic acidosis with mild respiratory acidosis. Etiology undetermined. Sepsis is most likely cause. Acute renal failure may be contributory. Consider other possibilities 4. History of tobacco abuse 5. Renal failure. Duration unknown. 6. High blood 7. Altered mental status. 12/02/2016. Patient is emotional and cries easily. Her cough seems to be resolved and she is moving air much better. Chest x-ray shows heart size to be top normal interstitial markings are prominent especially in the perihilar areas. There is minimal bibasilar microatelectasis. No definite infiltrate. No heart failure. Natruretic peptide is elevated 581. ABGs on room air show a pH 7.509, PCO2 38.9, PO2 64.3 and a bicarb of 30.3. Creatinine is dropped from 3.70-1.10 electrolytes normal. There are no positive cultures reported. Cold agglutinins are negative. Multiple other studies are pending Doppler venogram showed no evidence of deep venous thrombophlebitis. Labs been reviewed Medicines been reviewed Physical exam Vital signs. See below Psychiatric. Emotional. Cries easily. Neurologic. Cranial nerves are intact long track motor functions intact Face. Symmetrical. No edema of the lips or tongue. Neck. Symmetrical. No meningismus. Lymphatics. No submandibular cervical supraclavicular or epitrochlear adenopathy. Chest. Mild prolongation of expiration. Previously noted large airway and small airway wheezes are resolved. Heart. No gallop Abdomen. Nondistended. Positive bowel sounds Extremities. No edema. The remainder the physical exam is noncontributory and negative Plan. 12/01/2006 1. Stop vancomycin. Use Cleocin in place of this for the present time. 2. Decrease dose of Levaquin in face of renal failure 3. Renal consultation 4. Cold agglutinins 5. Legionella titer 6. Sputum for Gram stain culture and sensitivity 7. Serial chest x-rays 8. Serial ABGs 9. Doppler venograms of the lower extremities 10. IV Aminophyllin. Daily theophylline levels 11. Singulair. 12. Agree with duo nebs every 4 hours. 13. See order 12/02/2016 1. Check cultures 2. Follow-up chest x-ray, ABGs, lab 3. IV Aminophyllin has worked well. If continues to do well we can probably switch this to theophylline 200 mg p.o. twice daily. Exam (Progress Note) - Constitutional Vitals: Period Temp Pulse Resp BP Sys/Tabares Pulse Ox Last 24 Hr 97.2 F-98.1 F 71-111 10-27 90-157/61-96 91-99 Results - Labs CBC & BMP: 12/01/16 00:57 12/02/16 03:56
[2016-12-02] MEDS: predniSONE 20 MG TABLET PO SCH (09:08)
[2016-12-02] MEDS: LEVOFLOXACIN INJ 250 MG in PREMIX 1 EACH IV SCH (10:17)
--- NOTE | 2016-12-02 20:55 | Nephrology Progress Note ---
Nephrology - PN: Subj Interval history: She is alert and oriented. She currently denies shortness of breath. No nausea or vomiting. Exam (PN)-Nephrology - Vital Signs Vital signs: Period Temp Pulse Resp BP Sys/Tabares Pulse Ox Last 24 Hr 97.2 F-98.1 F 69-109 13-24 115-157/73-96 91-97 Exam: Gen.: Alert and oriented x3. ENT: Pupils equal round reactive to light. EOMs intact. Mucous membranes moist. Neck: Supple. No JVD or bruit. Cardiovascular: Regular rate and rhythm. No murmur rub or gallop Lungs: Minimal end expiratory wheeze Abdomen: Soft. Nontender. Positive bowel sounds. No organomegaly Extremities: No edema - Lab 12/01/16 00:57 12/02/16 03:56 Most recent lab results ABG pH 7.509 (7.35-7.45) H 12/02/16 03:28 ABG pCO2 38.9 MM HG (35-48) 12/02/16 03:28 ABG pO2 64.3 MM HG (80-95) L 12/02/16 03:28 ABG HCO3 30.3 MMOL/L (20-26) H 12/02/16 03:28 ABG O2 Saturation 93.8 % (95-100) L 12/02/16 03:28 Calcium 8.2 MG/DL (8.5-10.1) L 12/02/16 03:56 Assessment and Plan (1) Acute kidney injury Status: Acute Assessment and plan: 66-year-old woman with: * Wheezing. No history of pulmonary disease other than sleep apnea. Followed by pulmonary * ARF. Resolved * Combined metabolic and respiratory acidosis. She now has mild metabolic alkalosis. Respiratory acidosis has resolved. IV bicarbonate discontinued * Altered mental status. She is oriented but family states she is not acting quite herself. She did take tramadol prior to admission Current Visit: Yes (2) Respiratory acidosis Status: Acute Current Visit: Yes (3) Wheezing Status: Acute Current Visit: Yes (4) Altered mental status Status: Acute Current Visit: Yes (5) Leukocytosis Status: Acute Current Visit: Yes (6) Metabolic acidosis Status: Acute Current Visit: Yes
[2016-12-03] MEDS: ONDANSETRON 4 MG/2 ML VIAL IV PRN ×2 (00:19→08:32)
[2016-12-03] MEDS: CLINDAMYCIN INJ 300 MG in PREMIX 1 EACH IV SCH ×2 (00:24→08:37)
[2016-12-03] MEDS: ALBUTEROL 1.25 MG/3 ML NEB RESP TX SCH ×6 (03:53→22:45)
[2016-12-03] MEDS ORDERED: LEVOFLOXACIN INJ 500 MG in PREMIX 1 EACH IV SCH (04:00)
[2016-12-03 04:03] LABS: ABG Base Excess 8.5 MMOL/L (-2.5-2.5); ABG HCO3 32.2 MMOL/L (20-26); ABG Oxygen Saturation 98.6 % (95-100); ABG PCO2 44.9 MM HG (35-48); ABG PH 7.475 (7.35-7.45); ABG TCO2 30.2 MMOL/L (23-27)
[2016-12-03] MEDS: AMINOPHYLLINE 500 MG in SODIUM CHLORIDE 0.9% 480 ML IV SCH (05:08)
[2016-12-03 06:50] LABS: Calcium 8.8 MG/DL (8.5-10.1); Potassium 3.8 MMOL/L (3.5-5.1)
[2016-12-03] MEDS ORDERED: LEVOFLOXACIN INJ 250 MG in PREMIX 1 EACH IV SCH (08:00)
--- NOTE | 2016-12-03 08:56 | XRay Report ---
History: Patient on ventilator Date: 12/03/2016 Study: Chest x-ray AP portable Comparison exam: 12/02/2016 There is continued mild cardiomegaly. The pulmonary vasculature is slightly prominent. The mediastinal contours are unchanged. There is increasing patchy and hazy edema in the lower lungs compared to the previous study. There is continued mild bilateral pleural effusion. Osseous structures are similar. Impression: Increasing bibasilar parenchymal disease and mild bilateral pleural effusion. Element of CHF is suspected, with or without underlying pneumonia PROCEDURE INTERPRETED AT [facility] DEPARTMENT OF RADIOLOGY Final Report Signed by: Dr. Ann Haynes
[2016-12-03] MEDS ORDERED: FUROSEMIDE 20 MG/2 ML VIAL IV ONE (09:28)
[2016-12-03] MEDS ORDERED: POTASSIUM CHLORIDE 10 MEQ TABLET PO ONE (09:30)
--- NOTE | 2016-12-03 09:34 | Pulmonology Progress Note ---
Pulmonary - PN: Subj Interval history: This is a 66-year-old white female. I saw her in pulmonary consultation on 12/01. My impressions were. 1. Acute severe bronchitis with bronchospasm. Watch for pneumonia. Also consider the possibility that DARIEL inhibitor is may be exacerbating laryngeal and tracheal wheeze. 2. Mild hypercarbia and mild hypoxemia 3. Severe metabolic acidosis with mild respiratory acidosis. Etiology undetermined. Sepsis is most likely cause. Acute renal failure may be contributory. Consider other possibilities 4. History of tobacco abuse 5. Renal failure. Duration unknown. 6. High blood 7. Altered mental status. 12/02/2016. Patient is emotional and cries easily. Her cough seems to be resolved and she is moving air much better. Chest x-ray shows heart size to be top normal interstitial markings are prominent especially in the perihilar areas. There is minimal bibasilar microatelectasis. No definite infiltrate. No heart failure. Natruretic peptide is elevated 581. ABGs on room air show a pH 7.509, PCO2 38.9, PO2 64.3 and a bicarb of 30.3. Creatinine is dropped from 3.70-1.10 electrolytes normal. There are no positive cultures reported. Cold agglutinins are negative. Multiple other studies are pending Doppler venogram showed no evidence of deep venous thrombophlebitis. Labs been reviewed Medicines been reviewed 12/03/2016. Patient's chest x-ray shows small bilateral pleural effusions. I will give the the patient 20 mg of Lasix IV push and 10 mEq of KCl p.o. Will repeat the chest x-ray tomorrow. Previous natruretic peptide was elevated at 581. Patient complains of nausea. This is probably her Cleocin which we can stop now all of her cultures are negative. We will continue Levaquin. The patient has become 100% wheeze free. Her prednisone is been reduced to 20 mg daily. She is on Singulair. I am converting IV Aminophyllin 200 mg p.o. twice daily. Tomorrow we will repeat her chest x-ray and a BNP. ABGs on FiO2 28% shows a pH of 7.475, PCO2 44.9, PO2 of 118 a bicarb of 32.2. Admit creatinine was 3.70 and is now fallen to 0.90 with a BUN of 30. Overall this patient is markedly better. Chest is 100% wheeze free which represents a huge differential Physical exam Vital signs. See below Psychiatric. Emotional. Cries easily. Neurologic. Cranial nerves are intact long track motor functions intact Face. Symmetrical. No edema of the lips or tongue. Neck. Symmetrical. No meningismus. Lymphatics. No submandibular cervical supraclavicular or epitrochlear adenopathy. Chest. Mild prolongation of expiration. No wheezes. Previously noted large airway and small airway wheezes are resolved. Heart. No gallop Abdomen. Nondistended. Positive bowel sounds Extremities. No edema. The remainder the physical exam is noncontributory and negative Plan. 12/01/2006 1. Stop vancomycin. Use Cleocin in place of this for the present time. 2. Decrease dose of Levaquin in face of renal failure 3. Renal consultation 4. Cold agglutinins 5. Legionella titer 6. Sputum for Gram stain culture and sensitivity 7. Serial chest x-rays 8. Serial ABGs 9. Doppler venograms of the lower extremities 10. IV Aminophyllin. Daily theophylline levels 11. Singulair. 12. Agree with duo nebs every 4 hours. 13. See order 12/02/2016 1. Check cultures 2. Follow-up chest x-ray, ABGs, lab 3. IV Aminophyllin has worked well. If continues to do well we can probably switch this to theophylline 200 mg p.o. twice daily. 12/03/2016. 1. Lasix 20 IV push 2. Chest x-ray and lab in the morning. 3. DC Cleocin 4. Continue Levaquin 5. Convert IV Aminophyllin and theophylline 100 mg p.o. twice daily Exam (Progress Note) - Constitutional Vitals: Period Temp Pulse Resp BP Sys/Tabares Pulse Ox Last 24 Hr 97.5 F-98.2 F 71-100 18-20 135-168/76-98 91-98 Results - Labs CBC & BMP: 12/01/16 00:57 12/03/16 06:06
[2016-12-03] MEDS: LEVOFLOXACIN INJ 250 MG in PREMIX 1 EACH IV SCH (09:39)
--- NOTE | 2016-12-03 13:13 | Hospitalist Progress Note ---
Assessment and Plan - Time spent with patient Time spent with patient: Greater than 30 minutes (1) Metabolic acidosis Status: Acute Current Visit: Yes (2) Acute kidney injury Status: Acute Current Visit: Yes (3) Altered mental status Status: Acute Current Visit: Yes (4) Anemia Status: Acute Current Visit: Yes (5) Leukocytosis Status: Acute Current Visit: Yes (6) Pneumonia Status: Acute Assessment and plan: Continue Levaquin, clindamycin has been discontinued. Continue respiratory therapy, pulmonology is following. Nephrology following Discontinue IV fluid hydration Prednisone 20mg daily and continue to taper GI prophylaxis while on steroid Psych eval by [facility] DVT prophylaxis Current Visit: Yes Hospitalist: Subjective Interval history: Resp status has continued to improve, almost wheeze free. Receiving IV lasix for pleural effusion She is sleeping quietly at the time of my rounds, she did wake up to talk to me. The nurses however report that she has been difficult to manage, the family is aware they are agreeable with having psych evaluation No fever Exam - Constitutional Vitals: Period Temp Pulse Resp BP Sys/Tabares Pulse Ox Last 24 Hr 97.5 F-98.2 F 71-93 18-20 138-168/76-98 91-98 Exam: - Head Head exam: Present: normocephalic, atraumatic - Eye Pupils: Present: JACK - Respiratory Respiratory exam: Absent: accessory muscle use, chest wall tenderness, wheezes , rhonchi - Cardiovascular Cardiovascular exam: Present: regular rate and rhythm. Absent: JVD, systolic murmur - GI/Abdominal GI/Abdominal exam: Present: normal bowel sounds, soft. Absent: ascites, tenderness - Extremities Exam Extremities exam: Present: edema. Absent: calf tenderness - Neurological Exam Neurological exam: Present: alert, oriented X3 - Skin Skin exam: Present: normal color, warm, dry Results - Labs CBC & BMP: 12/01/16 00:57 12/03/16 06:06 Lab Results: I have reviewed the past 24 hour labs - Diagnostic Findings Procedure: Chest x-ray: report reviewed by me, image reviewed by me
[2016-12-03] MEDS: THEOPHYLLINE ER (24 HR) 200 MG CAPSULE PO SCH (13:19)
[2016-12-03] MEDS: PANTOPRAZOLE 40 MG TABLET PO SCH (13:20)
[2016-12-03] MEDS: predniSONE 20 MG TABLET PO SCH (13:20)
--- NOTE | 2016-12-03 13:34 | Nephrology Progress Note ---
Nephrology - PN: Subj Interval history: She reports mild shortness of breath. No GI symptoms Exam (PN)-Nephrology - Vital Signs Vital signs: Period Temp Pulse Resp BP Sys/Tabares Pulse Ox Last 24 Hr 97.5 F-98.2 F 71-93 18-20 138-168/76-98 91-98 Exam: Gen.: Alert and oriented x3. ENT: Pupils equal round reactive to light. EOMs intact. Mucous membranes moist. Neck: Supple. No JVD or bruit. Cardiovascular: Regular rate and rhythm. No murmur rub or gallop Lungs: Minimal expiratory wheezes Abdomen: Soft. Nontender. Positive bowel sounds. No organomegaly Extremities: No edema - Lab 12/01/16 00:57 12/03/16 06:06 Most recent lab results ABG pH 7.475 (7.35-7.45) H 12/03/16 03:50 ABG pCO2 44.9 MM HG (35-48) 12/03/16 03:50 ABG pO2 118.0 MM HG (80-95) H 12/03/16 03:50 ABG HCO3 32.2 MMOL/L (20-26) H 12/03/16 03:50 ABG O2 Saturation 98.6 % (95-100) 12/03/16 03:50 Calcium 8.8 MG/DL (8.5-10.1) 12/03/16 06:06 Magnesium 2.4 MG/DL (1.8-2.4) 12/03/16 Unknown Assessment and Plan (1) Acute kidney injury Status: Acute Assessment and plan: 66-year-old woman with: * Wheezing. No history of pulmonary disease other than sleep apnea. She has mild volume overload. IV fluid was discontinued yesterday. She is to receive IV Lasix * ARF. Resolved. I will sign off. Please recall as needed * Combined metabolic and respiratory acidosis. Resolved * Altered mental status. She is oriented but family states she is not acting quite herself. She did take tramadol prior to admission Current Visit: Yes (2) Respiratory acidosis Status: Acute Current Visit: Yes (3) Wheezing Status: Acute Current Visit: Yes (4) Altered mental status Status: Acute Current Visit: Yes (5) Leukocytosis Status: Acute Current Visit: Yes (6) Metabolic acidosis Status: Acute Current Visit: Yes
[2016-12-03] MEDS: MUPIROCIN 2% OINT 22 GM TUBE TOP SCH ×2 (13:46→20:30)
[2016-12-03] MEDS: MONTELUKAST 10 MG TABLET PO SCH (13:48)
[2016-12-03] MEDS: CARBIDOPA/LEVODOPA 25-100 MG TABLET PO SCH (13:49)
[2016-12-04] MEDS: ALBUTEROL 1.25 MG/3 ML NEB RESP TX SCH ×5 (03:00→19:56)
[2016-12-04 04:36] LABS: Allen Test Positive; Pt O2 Delivery Device Room Air
[2016-12-04 04:40] LABS: ABG Base Excess 8.1 MMOL/L (-2.5-2.5); ABG HCO3 31.7 MMOL/L (20-26); ABG Oxygen Saturation 89.1 % (95-100); ABG PCO2 41.2 MM HG (35-48); ABG PH 7.499 (7.35-7.45); ABG PO2 55.6 MM HG (80-95); ABG TCO2 29.2 MMOL/L (23-27)
[2016-12-04 05:18] LABS: Calcium 8.6 MG/DL (8.5-10.1); Magnesium 2.4 MG/DL (1.8-2.4); Osmolality,Calculated 285.1 MOS/KG (273-304); Potassium 4.3 MMOL/L (3.5-5.1)
--- NOTE | 2016-12-04 08:29 | XRay Report ---
XR chest 1V portable Indication: Pleural effusions Comparison: Chest x-ray dated December 03, 2016 Technique: Single frontal view of the chest. Findings: Continued cardiomegaly. Mildly improved layering bilateral pleural fluid with small bilateral pleural fluid remaining. Visualized osseous and surrounding soft tissue structures appear grossly unchanged. IMPRESSION: As above. PROCEDURE INTERPRETED AT [facility] DEPARTMENT OF RADIOLOGY Final Report Signed by: Dr Jim William
[2016-12-04] MEDS: predniSONE 20 MG TABLET PO SCH (08:53)
[2016-12-04] MEDS: PANTOPRAZOLE 40 MG TABLET PO SCH (08:54)
[2016-12-04] MEDS: THEOPHYLLINE ER (24 HR) 200 MG CAPSULE PO SCH (08:54)
[2016-12-04] MEDS: LEVOFLOXACIN INJ 250 MG in PREMIX 1 EACH IV SCH (08:59)
[2016-12-04] MEDS: MUPIROCIN 2% OINT 22 GM TUBE TOP SCH ×2 (09:00→21:28)
[2016-12-04] MEDS: CARBIDOPA/LEVODOPA 25-100 MG TABLET PO SCH (09:01)
[2016-12-04] MEDS: MONTELUKAST 10 MG TABLET PO SCH (09:02)
[2016-12-04] MEDS: LISINOPRIL/HCTZ 20-12.5 MG TABLET PO SCH (09:33)
--- NOTE | 2016-12-04 09:36 | Pulmonology Progress Note ---
Pulmonary - PN: Subj Interval history: This is a 66-year-old white female. I saw her in pulmonary consultation on 12/01. My impressions were. 1. Acute severe bronchitis with bronchospasm. Watch for pneumonia. Also consider the possibility that DARIEL inhibitor is may be exacerbating laryngeal and tracheal wheeze. 2. Mild hypercarbia and mild hypoxemia 3. Severe metabolic acidosis with mild respiratory acidosis. Etiology undetermined. Sepsis is most likely cause. Acute renal failure may be contributory. Consider other possibilities 4. History of tobacco abuse 5. Renal failure. Duration unknown. 6. High blood 7. Altered mental status. 12/02/2016. Patient is emotional and cries easily. Her cough seems to be resolved and she is moving air much better. Chest x-ray shows heart size to be top normal interstitial markings are prominent especially in the perihilar areas. There is minimal bibasilar microatelectasis. No definite infiltrate. No heart failure. Natruretic peptide is elevated 581. ABGs on room air show a pH 7.509, PCO2 38.9, PO2 64.3 and a bicarb of 30.3. Creatinine is dropped from 3.70-1.10 electrolytes normal. There are no positive cultures reported. Cold agglutinins are negative. Multiple other studies are pending Doppler venogram showed no evidence of deep venous thrombophlebitis. Labs been reviewed Medicines been reviewed 12/03/2016. Patient's chest x-ray shows small bilateral pleural effusions. I will give the the patient 20 mg of Lasix IV push and 10 mEq of KCl p.o. Will repeat the chest x-ray tomorrow. Previous natruretic peptide was elevated at 581. Patient complains of nausea. This is probably her Cleocin which we can stop now all of her cultures are negative. We will continue Levaquin. The patient has become 100% wheeze free. Her prednisone is been reduced to 20 mg daily. She is on Singulair. I am converting IV Aminophyllin 200 mg p.o. twice daily. Tomorrow we will repeat her chest x-ray and a BNP. ABGs on FiO2 28% shows a pH of 7.475, PCO2 44.9, PO2 of 118 a bicarb of 32.2. Admit creatinine was 3.70 and is now fallen to 0.90 with a BUN of 30. Overall this patient is markedly better. Chest is 100% wheeze free which represents a huge differential 12/04/2016. Patient's chest x-ray is cleared up. There are no pleural effusions. There are no infiltrates. Her chest is much clearer. Previously noted wheezing is markedly improved. When she goes home I suggest we send her on Greg-24 200 mg once a day and Singulair 10 mg daily. She is on DuoNeb inhalation treatments 4 times a day and probably could benefit using these at home 2-4 times a day. I talked to the patient about avoiding cigarette smoke. Family was present and Neptali Weiner nurse practitioner was also present. ABGs on room air show a pH of 7.499, PCO2 41.2, PO2 of 55.6 and a bicarb of 31.7. O2 sats are 89%. This patient could benefit from 2 L/min oxygen at night. Her O2 sats need to be 88 or less to qualify. BNP remains elevated. This is secondary to her pulmonary hypertension. Pulmonary artery pressures were estimated to be 50 mmHg. 30 over the last is considered normal. Left ventricular ejection fraction is 60%. Patient's on prednisone 20 mg daily. I would recommend 10 mg daily for 10 days and 10 mg every other day for additional 10 doses ,then discontinue prednisone. Renal failure has resolved. Creatinine is 0.80 BUNs 24. From my standpoint this patient is doing well. I will sign off. She should be referred back to her home Dr. mary Physical exam Vital signs. See below Psychiatric. Emotional. Cries easily. Neurologic. Cranial nerves are intact long track motor functions intact Face. Symmetrical. No edema of the lips or tongue. Neck. Symmetrical. No meningismus. Lymphatics. No submandibular cervical supraclavicular or epitrochlear adenopathy. Chest. Mild prolongation of expiration. No wheezes. Previously noted large airway and small airway wheezes are resolved. Heart. No gallop Abdomen. Nondistended. Positive bowel sounds Extremities. No edema. The remainder the physical exam is noncontributory and negative Plan. 12/01/2006 1. Stop vancomycin. Use Cleocin in place of this for the present time. 2. Decrease dose of Levaquin in face of renal failure 3. Renal consultation 4. Cold agglutinins 5. Legionella titer 6. Sputum for Gram stain culture and sensitivity 7. Serial chest x-rays 8. Serial ABGs 9. Doppler venograms of the lower extremities 10. IV Aminophyllin. Daily theophylline levels 11. Singulair. 12. Agree with duo nebs every 4 hours. 13. See order 12/02/2016 1. Check cultures 2. Follow-up chest x-ray, ABGs, lab 3. IV Aminophyllin has worked well. If continues to do well we can probably switch this to theophylline 200 mg p.o. twice daily. 12/03/2016. 1. Lasix 20 IV push 2. Chest x-ray and lab in the morning. 3. DC Cleocin 4. Continue Levaquin 5. Convert IV Aminophyllin and theophylline 100 mg p.o. twice daily 12/04/2016. 1. Suggested home medicines. Greg-24 200 mg once a day. Singulair 10 mg daily 2 L/min nasal oxygen at bedtime. Nebulizer with duo nebs 2-4 times a day. Prednisone 10 mg daily for 10 days, then 10 mg every other days for 10 doses, then discontinue prednisone. 2. Suggest this patient be referred back to her home 3. I will sign off. Reconsult as needed. Exam (Progress Note) - Constitutional Vitals: Period Temp Pulse Resp BP Sys/Tabares Pulse Ox Last 24 Hr 96.9 F-98.3 F 56-79 18-22 138-163/75-95 91-98 Results - Labs CBC & BMP: 12/01/16 00:57 12/04/16 02:59
--- NOTE | 2016-12-04 10:21 | Hospitalist Progress Note ---
Assessment and Plan (1) Pneumonia Status: Acute Assessment and plan: Improving. CXR showed Continued cardiomegaly. Mildly improved layering bilateral pleural fluid with small bilateral pleural fluid remaining Plan continue current regime and Pulm's recommendations For possible dc in am Current Visit: Yes (2) Acute kidney injury Status: Acute Assessment and plan: Improved. Nephrology is following. Current Visit: Yes (3) Metabolic acidosis Status: Acute Assessment and plan: Resolved Current Visit: Yes (4) Acute bronchitis Status: Acute Assessment and plan: Continue steroids, neb treatment, antibiotics. Current Visit: Yes (5) Altered mental status Status: Acute Assessment and plan: Improved. Patient is alert and oriented x3. Current Visit: Yes (6) HTN (hypertension) Status: Acute Assessment and plan: Resume home meds Current Visit: Yes Hospitalist: Subjective Interval history: Patient states no new complaints, she feels better. [place] is yet to evaluate.We have started working on discharge, most likely home in am with PT and Home health. Exam - Constitutional Vitals: Period Temp Pulse Resp BP Sys/Tabares Pulse Ox Last 24 Hr 96.9 F-98.3 F 56-79 18-22 138-163/75-95 91-98 General appearance: no acute distress - Head Head exam: Present: normal inspection - Respiratory Respiratory exam: Present: clear to auscultation bilaterally - Cardiovascular Cardiovascular exam: Present: regular rate and rhythm - GI/Abdominal GI/Abdominal exam: Present: normal bowel sounds - Extremities Exam Extremities exam: Present: normal inspection - Neurological Exam Neurological exam: Present: alert, oriented X3 Results - Labs CBC & BMP: 12/01/16 00:57 12/04/16 02:59 Lab Results: I have reviewed the past 24 hour labs
[2016-12-04] MEDS: IRON (CARBONYL) 45 MG TABLET PO SCH (15:30)
[2016-12-04] MEDS: ENOXAPARIN 40 MG/0.4 ML SYRINGE SUBCUT SCH (15:30)
[2016-12-05] MEDS: ALBUTEROL 1.25 MG/3 ML NEB RESP TX SCH ×3 (00:12→06:52)
[2016-12-05 06:37] LABS: Basophils % 0.2 % (0.0-0.8); Eosinophils # 0.1 10*3/uL (0.0-0.87); Eosinophils % 0.8 % (0.00-10.9); Hematocrit 31.9 VOL% (35.7-47.0); Hemoglobin 10.5 GM/DL (12.0-16.0); Immature Granulocytes % 0.8 %; Immature Granulocytes Absolute 0.12 #; Lymphocytes # 4.4 10*3/uL (1.4-4.0); Lymphocytes % 27.9 % (21.3-54.2); Mean Corpuscular HGB Conc 32.9 GM/DL (32-36); Mean Corpuscular Hemoglobin 29 PG (27-34); Mean Corpuscular Volume 86.9 FL (87-102); Mean Platelet Volume 10.1 FL (9.6-12.0); Monocytes # 1.1 10*3/uL (0.11-0.8); Monocytes % 6.7 % (1.7-12.7); Neutrophils # 10.1 10*3/uL (1.4-7.4); Neutrophils % 63.6 % (38.7-73.9); Platelet Count 384 T/CUMM (130-400); Red Blood Count 3.67 MC/CUMM (3.8-5.5); Red Cell Distribution Width 13.8 % (9.3-17.3); White Blood Count 15.9 T/CUMM (4-12)
[2016-12-05 07:10] LABS: Calcium 9.2 MG/DL (8.5-10.1); Osmolality,Calculated 277.5 MOS/KG (273-304); Potassium 4.1 MMOL/L (3.5-5.1)
[2016-12-05] MEDS: LISINOPRIL/HCTZ 20-12.5 MG TABLET PO SCH (09:50)
[2016-12-05] MEDS: PANTOPRAZOLE 40 MG TABLET PO SCH (09:50)
[2016-12-05] MEDS: predniSONE 20 MG TABLET PO SCH (09:50)
[2016-12-05] MEDS: THEOPHYLLINE ER (24 HR) 200 MG CAPSULE PO SCH (09:50)
[2016-12-05] MEDS: IRON (CARBONYL) 45 MG TABLET PO SCH (09:50)
[2016-12-05] MEDS: LEVOFLOXACIN INJ 250 MG in PREMIX 1 EACH IV SCH (09:51)
--- NOTE | 2016-12-05 10:20 | Discharge Summary ---
<Fredis Cuellar - Last Filed: 12/05/16 09:55> Hospital Course - Hospital Course Hospital Course: Ms. Frias is a 66-year-old female patient with a history of GERD, hypertension, CAD, migraines, and GRACIE that presented to the ED on 12/01 as a transfer from [facility] where she had been evaluated for altered mental status and a 3 day history of respiratory complaints that had not improved on outpatient antibiotics. During their workup the patient was noted to have renal insufficiency. Patient was also noted to have elevated WBC of 31. She received an antibiotic at the outside facility as well as fluid resuscitation and was transferred. Patient was admitted to our ICU for closer monitoring. ABGs revealed pH of 7.15 with PCO2 of 52.6. Pulmonary was consulted to evaluate the patient. Their impression was that patient had acute severe bronchitis with bronchospasm, mild hypercarbia and mild hypoxemia, severe metabolic acidosis with mild respiratory acidosis. Pt was treated with IV fluids, antibiotics, steroids, and neb treatments. Pt. also received serial ABGs and CXRs. Pt. was able to be transferred to the floor. Patient's respiratory status continued to improve.Pulmonary signed off. Renal function also improved. Patient did began to experience issues with emotional status and a psych eval was ordered for patient. Pt. will be discharged today with PT and home health with [facility] so their psych nurse can visit her.Her vitals are stable and she will go home today. Pulmononary recommends Greg-24 200 mg once a day and Singulair 10 mg daily. She is on DuoNeb inhalation treatments 4 times a day and probably could benefit using these at home 2-4 times a day,2 L/min oxygen at night and Prednisone 10 mg daily for 10 days and 10 mg every other day for additional 10 doses ,then discontinue prednisone. I will also continue Levaquin x7days. Discharge Plan - Discharge Data Disposition: Home Health Service - Discharge Medications New Acetaminophen Tab [Tylenol Tab] 650 mg PO Q4H PRN tablet PRN Reason: Fever, Headache, Mild Pain Iron (Carbonyl) [Feosol Natural Release Tab] 45 mg PO DAILY #30 tablet Mupirocin 2% Oint [Bactroban 2% Oint] 1 applic TOP BID applic predniSONE TAB [PredniSONE] See Taper PO DAILY #20 tablet Theophylline ER Cap (24 Hr) [Greg-24] 200 mg PO DAILY #30 capsule Montelukast Tab [Singulair Tab] 10 mg PO DAILY #30 tablet Levofloxacin Tab [Levaquin Tab] 250 mg PO DAILY #7 tablet Continue Estrogens(Conj) Tab [Premarin Tab] 0.625 mg PO DAILY Zestoretic 20-12.5 mg Tablet 20 mg PO DAILY Gabapentin 300 mg PO DAILY FLUoxetine [PROzac] 20 mg PO DAILY Pramipexole Di-HCl [Mirapex] 0.5 mg PO BEDTIME Esomeprazole Magnesium [Nexium] 40 mg PO DAILY Discontinued Zolpidem [Ambien] 10 mg PO BEDTIME Cyclobenzaprine [Flexeril] 10 mg PO DAILY - Follow Up or Referral - Forms/Instructions Exam - Constitutional Vitals: Period Temp Pulse Resp BP Sys/Tabares Pulse Ox Last 24 Hr 96.9 F-98.2 F 54-86 17-22 123-173/58-84 91-98 Discharge Results Procedures and tests throughout hospitalization: Pending Orders 12/01/16 05:20 Blood Culture Stat 12/01/16 08:07 Legionella Ag, Urine Stat 12/06/16 04:00 Basic Metabolic Panel IN AM 12/07/16 04:00 Basic Metabolic Panel IN AM Labs on day of discharge: Labs from last 24 hours 12/05/16 12/05/16 12/01/16 06:23 06:23 08:19 WBC 15.9 H RBC 3.67 L Hgb 10.5 L Hct 31.9 L MCV 86.9 L MCH 29 MCHC 32.9 RDW 13.8 Plt Count 384 MPV 10.1 Neut % (Auto) 63.6 Lymph % (Auto) 27.9 [place] % (Auto) 6.7 Eos % (Auto) 0.8 Baso % (Auto) 0.2 Neut # (Auto) 10.1 H Lymph # (Auto) 4.4 H [place] # (Auto) 1.1 H Eos # (Auto) 0.1 Baso # (Auto) 0.0 Immature Gran % 0.8 Nucleated RBC % 0.0 Immature Gran # 0.12 Nucleated RBCs # 0.00 Immature Plt Fraction 0.0 Sodium 139 Potassium 4.1 Chloride 102 Carbon Dioxide 32 Anion Gap 9.1 BUN 15 Creatinine 0.90 GFR Calculation 75 BUN/Creatinine Ratio 16.00 Glucose 100 Calculated Osmolality 277.5 Calcium 9.2 Procalcitonin Legionella pneumophila Ab Negative 12/01/16 00:57 WBC RBC Hgb Hct MCV MCH MCHC RDW Plt Count MPV Neut % (Auto) Lymph % (Auto) [place] % (Auto) Eos % (Auto) Baso % (Auto) Neut # (Auto) Lymph # (Auto) [place] # (Auto) Eos # (Auto) Baso # (Auto) Immature Gran % Nucleated RBC % Immature Gran # Nucleated RBCs # Immature Plt Fraction Sodium Potassium Chloride Carbon Dioxide Anion Gap BUN Creatinine GFR Calculation BUN/Creatinine Ratio Glucose Calculated Osmolality Calcium Procalcitonin 0.44 H Legionella pneumophila Ab Preliminary micro results at discharge 12/01/16 05:20 Blood Culture - Preliminary Blood No growth at 3 days 12/01/16 05:20 Blood Culture - Preliminary Blood No growth at 3 days DS: Provider Date of admission: 12/01/16 03:23 Primary care physician: . No PCP Attending physician on admission: Diaz Sousa MD Consults: 12/01/16 03:54 Consult to Physician [CONS] Routine Comment: [facility] Consulting Provider: Consult to Specialist Group: Nephrology When should Consulting Provider be notified: In am 12/01/16 07:09 Consult to Physician [CONS] Routine Comment: new onset wheezing/spesis/acidosis Consulting Provider: Consult to Specialist Group: Pulmonology When should Consulting Provider be notified: Now 12/04/16 08:19 Consult to Case Mgmt/Social Srvs [CONS] Routine Reason for Case Mgmt/Social Srvs: Discharge Planning 12/04/16 11:03 Consult to Case Mgmt/Social Srvs [CONS] Routine Reason for Case Mgmt/Social Srvs: Psychiatric Management Consult Comment: [facility] 12/05/16 08:33 Consult to Case Mgmt/Social Srvs [CONS] Routine Reason for Case Mgmt/Social Srvs: Other Consult Comment: [facility] Discharging clinician: Fredis Cuellar NP <Kayla Damon - Last Filed: 12/05/16 11:02> Hospital Course - Time spent with patient Time with patient DS: Greater than 30 minutes (Time spent greater than 35mins) Diagnosis - Discharge Diagnosis (1) Pneumonia Status: Acute (2) Acute kidney injury Status: Acute (3) Metabolic acidosis Status: Acute (4) Acute bronchitis Status: Acute (5) Altered mental status Status: Acute (6) HTN (hypertension) Status: Acute Discharge Plan - Discharge Data Condition at Discharge: Stable Discharge Diet: heart healthy Activity: resume usual activities as tolerated - Forms/Instructions Additional Discharge Instructions: Follow PCP in 1week. Home 2L/min oxygen at night. Exam - Constitutional General appearance: no acute distress - Head Head exam: Present: normal inspection - Respiratory Respiratory exam: Present: clear to auscultation bilaterally - Cardiovascular Cardiovascular exam: Present: regular rate and rhythm - GI/Abdominal GI/Abdominal exam: Present: normal bowel sounds - Extremities Exam Extremities exam: Present: normal inspection - Neurological Exam Neurological exam: Present: alert, oriented X3
[2016-12-05] MEDS: MONTELUKAST 10 MG TABLET PO SCH (11:25)
[2016-12-05] MEDS: CARBIDOPA/LEVODOPA 25-100 MG TABLET PO SCH (11:25)
[2016-12-05 11:41] VITALS: BP 154/80
[2016-12-05] MEDS: ENOXAPARIN 40 MG/0.4 ML SYRINGE SUBCUT SCH (11:51)
[2016-12-05] MEDS: MUPIROCIN 2% OINT 22 GM TUBE TOP SCH (11:52)
--- NOTE | 2016-12-12 08:32 | Physician Query Form ---
CLICK EDIT DOCUMENT TO SELECT QUERY ANSWER --> OK --> SIGN Rosario Snow RN Clinical Compliance Associate W) [phone] (f) [phone] [email or web address] PROVIDERS: Make your selection(s) from the choices in EACH section by typing an "x" and enter comments in the comment section. Please use your independent medical judgment in providing your response. This request does not imply that any particular answer is desired or expected. CLINICAL INDICATORS: (Providers should not edit this section) Based on documentation of "Possible Sepsis" Admitting vitals of 98.5, 85, 22, 86/54, 92% WBC of 27.0. "Acute Pneumonia" "Acute Respiratory Failure" "Severe metabolic acidosis with mild respiratory acidosis. Sepsis is most likely cause" Treated with NS bolus, IV Levaquin, IV Vancomycin, and IV Cleocin. Please clarify which, if any, of the following is the etiology of the above symptoms and treatment rendered: ( ) Sepsis due to a localized infection, please specify infection: ( ) Severe Sepsis (sepsis with acute organ failure) - Please specify type acute organ failure: ( ) Septic Shock (severe sepsis with hypotension) (x ) SIRS of noninfectious origin ( ) Sepsis due to a device, implant or graft, please specify: ( ) Localized infection only, without systemic illness, please specify infection : ( ) Bacteremia (abnormal lab finding only, does not indicate systemic illness) ( ) Other condition, please specify: ( ) Clinically unable to determine Criteria for Sepsis (SIRS due to an infection) should be based on 2 or more of the following being present: Temperature > 101F or < 96.8F WBC > 12,000 or < 4,000, or > 10% bands Tachycardia HR > 90 beats/minute Tachypnea RR > 20 breaths/minute or PaCO2 > 32mmHg Lactate level > 2.0 mmol/L (>4 is equivalent to severe sepsis) Altered Mental Status Mottling of skin or prolonged capillary refill Non-diabetic hyperglycemia (blood sugar >120 mg/dl) Other evidence of acute organ failure associated with sepsis ( severe sepsis) COMMENTS: PLEASE ALSO DOCUMENT RESPONSE IN PROGRESS NOTES AND/OR DISCHARGE SUMMARY Use of terms such as suspected, likely, or probable (associated with a specific diagnosis that is being evaluated, monitored, or treated as if it exists) are acceptable and can be restated in the discharge summary if not ruled out. MTDD
--- NOTE | 2016-12-12 08:38 | Physician Query Form ---
CLICK EDIT DOCUMENT TO SELECT QUERY ANSWER --> OK --> SIGN Rosario Snow RN Clinical Car Scrubber W) [phone] (f) [phone] [email or web address] PROVIDERS: Make your selection(s) from the choices in EACH section by typing an "x" and enter comments in the comment section. Please use your independent medical judgment in providing your response. This request does not imply that any particular answer is desired or expected. CLINICAL INDICATORS: (Providers should not edit this section) Based on documentation of "3 day history of respiratory complaint not improved on outpatient antibiotics" "Acute Pneumonia" "SOB" "Acute Bronchitis with Bronchospasm" "Wheezing" BNP of 581. Echo shows EF of 60% with Grade 1 Diastolic Dysfunction. Treated with IV Lasix. Please provide further specificity regarding CHF. ACUITY: (x ) Acute ( ) Chronic ( ) Acute on Chronic ( ) Clinically unable to determine TYPE: ( ) Systolic (HFrEF - heart failure with reduced systolic function/EF) ( x) Diastolic (HFpEF - heart failure with preserved systolic function/EF) ( ) Combined Systolic/Diastolic ( ) Other, please specify: ( ) Clinically unable to determine ( ) Past Medical History of Systolic CHF ( ) Past Medical History of Diastolic CHF ( ) Clinically unable to determine COMMENTS: PLEASE ALSO DOCUMENT RESPONSE IN PROGRESS NOTES AND/OR DISCHARGE SUMMARY Use of terms such as suspected, likely, or probable (associated with a specific diagnosis that is being evaluated, monitored, or treated as if it exists) are acceptable and can be restated in the discharge summary if not ruled out. MTDD
--- NOTE | 2016-12-12 08:46 | Physician Query Form ---
CLICK EDIT DOCUMENT TO SELECT QUERY ANSWER --> OK --> SIGN Rosario Snow RN Clinical Dog Beautician W) [phone] (f) [phone] [email or web address] PROVIDERS: Make your selection(s) from the choices in EACH section by typing an "x" and enter comments in the comment section. Please use your independent medical judgment in providing your response. This request does not imply that any particular answer is desired or expected. CLINICAL INDICATORS: (Providers should not edit this section) Based on documentation of "Altered mental status" "mildly confused" "discharged today with and home health with [facility] so their psych nurse can visit her" ACUITY: ( x) Acute ( ) Acute on Chronic ( ) Chronic ( ) Clinically unable to determine NATURE: ( ) Delirium due to general medical condition ( ) Dementia (x ) Encephalopathy ( ) Unconscious ( ) Transient level of awareness ( ) Comatose ( ) Locked-in State ( ) Persistent Vegetative State ( ) Other, please specify: ( ) Clinically unable to determine Please indicate the underlying cause of the altered mental status (CHECK ALL THAT APPLY): ( ) Baseline dementia ( ) Alzheimer's disease ( ) Parkinson's disease ( ) Lewy body dementia ( ) Acute stroke ( ) Late effect of stroke ( ) Reactive (from emotional stress, psychological trauma) ( ) Due to narcotics/other drugs ( ) Post procedural delirium ( ) Transient ischemic attack ( ) Generalized cerebral edema ( ) Normal pressure hydrocephalus ( ) Psychiatric illness ( ) Other, please specify: ( x) Clinically unable to determine Please indicate if there is an infection, sepsis, dehydration or specific organ failure that is causing the dementia. Be specific with clarifying the relationship between that process and the mental status change. COMMENTS: PLEASE ALSO DOCUMENT RESPONSE IN PROGRESS NOTES AND/OR DISCHARGE SUMMARY Use of terms such as suspected, likely, or probable (associated with a specific diagnosis that is being evaluated, monitored, or treated as if it exists) are acceptable and can be restated in the discharge summary if not ruled out. MTDD
== END 2016-12-05 11:55 | disposition home or self-care (01) | DRG 193 ==
LOC: EDBD → EDUNIT# → N.ED 00:40 → SUATTDRO 03:23 → N.EDINP 03:23 → N.2E 03:54 → N.ICU 04:21 → N.2E 12-02 09:51
PROVIDERS: ADMIT Internal Medicine; ATTEND Internal Medicine